=== PATIENT | female | born 1950 | race Hispanic/Latino ===

== ENCOUNTER 2017-09-17 11:47 | Day surgery (SDC) | payer BC ==
[~2017-09-17 11:47] MED LIST: ASPIRIN EC81 MG PO; CITALOPRAM20 MG PO; FLUTICASONE50 MCG; LABETALOL100 MG PO; OMEPRAZOLE20 M2 PO; PRAVASTATIN SOD40 MG PO
[2017-09-17 15:55] VITALS: BP 147/70
== END 2017-09-17 16:08 | disposition home or self-care (01) | DRG 392 ==
LOC: ENDO 11:47 → ORM 12:45 → ENDO 12:45 → ORM 13:15 → ENDO 13:30
PROVIDERS: ATTEND Internal Medicine Gastroenterology
PROC: 0DB58ZX Excision of Esophagus, Via Natural or Artificial Opening Endoscopic, Diagnostic (ICD-10-PCS; principal; 2017-09-17)
PROC: 0D758ZZ Dilation of Esophagus, Via Natural or Artificial Opening Endoscopic (ICD-10-PCS; 2017-09-17)
DX: K21.9 Gastro-esophageal reflux disease without esophagitis (principal); R13.10 Dysphagia, unspecified; K22.8 Other specified diseases of esophagus; I10 Essential (primary) hypertension; R11.0 Nausea; R10.11 Right upper quadrant pain; R10.13 Epigastric pain; K29.50 Unspecified chronic gastritis without bleeding; K29.80 Duodenitis without bleeding; K31.7 Polyp of stomach and duodenum; K25.9 Gastric ulcer, unspecified as acute or chronic, without hemorrhage or perforation; F32.9 Major depressive disorder, single episode, unspecified; E78.00 Pure hypercholesterolemia, unspecified; K59.00 Constipation, unspecified; K80.20 Calculus of gallbladder without cholecystitis without obstruction; Z86.010 Personal history of colon polyps